=== PATIENT | male | born 1965 | race Caucasian/White ===

== ENCOUNTER 2018-01-30 13:31 | Emergency (ER) | payer OTHER ==
[~2018-01-30] VITALS: Ht 167.6 cm; Wt 81.7 kg
[2018-01-30 14:03] LABS: EOSINOPHILS 0.1 % (0.0-3.0); MCHC 35.5 g/dL (28.0-37.0)
[2018-01-30 14:11] LABS: ABSOLUTE NEUTROPHILS 10.8 thou/uL (1.4-8.2); BASOPHILS 0.7 % (0.0-2.0); HEMATOCRIT 49.6 % (42.0-52.0); HEMOGLOBIN 17.6 gm/dL (14.0-18.0); MCH 31.9 pg (26.0-34.0); MCV 89.9 fL (80.0-100.0); MONOCYTES 10.3 % (1.0-8.0); PLATELET COUNT 344 thou/uL (150-400); POLYS 73.9 % (36.0-66.0); RBC 5.52 mil/uL (4.50-6.00); WBC 14.6 thou/uL (4.0-11.0)
[2018-01-30 14:17] LABS: CALCIUM 11.1 mg/dL (8.5-10.1); CREATININE 1.8 mg/dL (0.7-1.3); POTASSIUM 3.3 mmol/L (3.5-5.1)
[2018-01-30 14:21] LABS: TOTAL BILIRUBIN 1.1 mg/dL (<0.1-1.0); TOTAL PROTEIN 9.7 g/dL (6.4-8.2)
[2018-01-30 14:39] LABS: ANISOCYTOSIS 1+
[2018-01-30 16:25] LABS: URINE BLOOD 2+ (Negative); URINE CLARITY CLEAR; URINE COLOR YELLOW; URINE GLUCOSE-RANDOM* NEGATIVE (Negative); URINE KETONES 1+ (Negative); URINE LEUKOCYTES-REFLEX NEGATIVE (Negative); URINE NITRITE-REFLEX NEGATIVE (Negative); URINE PROTEIN (DIPSTICK) 2+ (Negative); URINE SPECIFIC GRAVITY >= 1.030 (1.005-1.035); URINE UROBILINOGEN 0.2 E.U./dl (0.2-1.0)
[2018-01-30 16:29] LABS: ICTOTEST (BILI CONFIRMATORY) Negative (Negative); URINE BILIRUBIN NEGATIVE (Negative)
[2018-01-30 16:40] LABS: CRYSTALS None Seen /LPF (None Seen); MUCUS >6 Heavy strn/LPF (None Seen); SQUAMOUS 0-3 Few /LPF (0-3); URINE RBC 0-2 Rare /HPF (0-2); URINE WBC-REFLEX 0-5 Rare /HPF (0-5)
[2018-01-30 16:41] LABS: BACTERIA-REFLEX None Seen /HPF (None Seen); FINE GRANULAR CASTS 4-10 Moderate /LPF (None Seen); HYALINE CASTS >10 Many /LPF (None Seen)
[2018-01-30 17:21] LABS: CREATININE 1.4 mg/dL (0.7-1.3); POTASSIUM 3.5 mmol/L (3.5-5.1)
[2018-01-30 17:22] LABS: CALCIUM 8.8 mg/dL (8.5-10.1)
[2018-01-30] MEDS ORDERED: ONDANSETRON HCL4 M2 PO (17:26)
[2018-01-30] MEDS ORDERED: PHENERGAN 25 MG25 M1 PO (17:26)
[2018-01-30 17:36] VITALS: BP 124/74
== END 2018-01-30 17:37 | disposition home or self-care (01) ==
LOC: ER 13:31
PROVIDERS: Physician Assistant
DX: R11.2 Nausea with vomiting, unspecified (principal); N17.9 Acute kidney failure, unspecified; E86.0 Dehydration; R10.10 Upper abdominal pain, unspecified; R00.0 Tachycardia, unspecified

== ENCOUNTER → 2019-05-11 | Outpatient (CLI) | payer OTHER ==
[~2019-05-11] MED LIST: ONDANSETRON HCL4 M2 PO; PHENERGAN 25 MG25 M1 PO
== END ==
LOC: ULTRA 16:16
DX: N50.3 Cyst of epididymis (principal); Z98.52 Vasectomy status

== ENCOUNTER → 2019-07-23 | Outpatient (CLI) | payer OTHER | LOC: MRI 09:20 | DX: M47.816 Spondylosis without myelopathy or radiculopathy, lumbar region (principal); M47.817 Spondylosis without myelopathy or radiculopathy, lumbosacral region; M51.26 Other intervertebral disc displacement, lumbar region; M48.061 Spinal stenosis, lumbar region without neurogenic claudication; M51.27 Other intervertebral disc displacement, lumbosacral region; W19.XXXA Unspecified fall, initial encounter ==

== ENCOUNTER → 2020-03-23 | Outpatient (CLI) | payer OTHER | LOC: SJCVCIMAG 16:02 | PROVIDERS: ATTEND Internal Medicine | DX: Z01.810 Encounter for preprocedural cardiovascular examination (principal); R00.1 Bradycardia, unspecified ==

== ENCOUNTER → 2021-04-24 | Outpatient (CLI) | payer OTHER | LOC: RAD 10:54 | PROVIDERS: ATTEND Internal Medicine | DX: R05.9 Cough, unspecified (principal) ==

== ENCOUNTER → 2021-05-03 | Outpatient (CLI) | payer OTHER | LOC: MRI 11:31 | PROVIDERS: ATTEND Internal Medicine | DX: R26.89 Other abnormalities of gait and mobility (principal); W19.XXXS Unspecified fall, sequela ==